=== PATIENT | female | born 1960 | race Caucasian/White ===

== ENCOUNTER 2024-01-22 12:30 | Emergency (ER) | payer MEDICARE, SELFPAY ==
[2024-01-22 12:35] VITALS: BP 185/102; PULSE 79; RESP 18; TEMP 37.1; O2SAT 96; BMI 27.4
[2024-01-22 13:40] LABS: Amorphous Sediment Urine 1+; Bacteria Urine None Seen; Culture Indicated Urine Specimen Cultured; RBC Urine 0-1/HPF (0-5/HPF); Squamous Epithelial Cell Urine None Seen (0-5/HPF); Urine Volume 10mL (spun); WBC Urine 1-5/HPF (0-5/HPF)
[2024-01-22 13:49] LABS: Add Manual Diff / Slide Review NO; Basophils Absolute Auto 0 /uL (0-100); Basophils Percent Auto 0.6 % (0-2); Eosinophils Absolute Auto 200 /uL (0-450); Eosinophils Percent Auto 5.2 % (2-4); Hematocrit 41.5 % (36-46); Hemoglobin 14.3 g/dL (12.0-16.0); Lymphocytes Absolute Auto 1200 /uL (1100-4500); Lymphocytes Percent Auto 25.5 % (25-40); Mean Corpuscular HGB Conc 34.5 % (30-36); Mean Corpuscular Hemoglobin 32.9 PG (26-34); Mean Corpuscular Volume 95.5 fL (80-100); Monocytes Absolute Auto 400 /uL (0-900); Neutrophils Absolute Auto 2800 /uL (1500-7000); Neutrophils Percent Auto 60.7 % (50-75); Platelet Count 230 X10^3/uL (150-400); Red Blood Cell Count 4.34 X10^6/uL (4.0-5.2); Red Cell Distribution Width 12.4 % (11.6-14.8); White Blood Cell Count 4.6 X10^3/uL (4.5-11.0)
[2024-01-22 14:04] LABS: Alanine Aminotransferase 279 IU/L (<35); Albumin 4.8 g/dL (3.5-5.0); Albumin Globulin Ratio 1.5 (1.0-2.8); Alkaline Phosphatase 208 U/L (38-126); Aspartate Aminotransferase 86 IU/L (14-36); BUN Creatinine Ratio 15.8 (6-22); Bilirubin Total 1.4 mg/dL (0.2-1.3); Blood Urea Nitrogen 9 mg/dL (7-17); Calcium 9.4 mg/dL (8.4-10.2); Carbon Dioxide 28 mmol/L (22-32); Chloride 103 mmol/L (98-107); Estimated Glomerular Filt Rate > 60 mL/min (>60); Globulin 3.1 g/dL (1.7-4.1); Glucose 116 mg/dL (80-110); HEMOLYSIS < 15 (0-50); Sodium 138 mmol/L (137-145); Total Protein 7.9 g/dL (6.3-8.2)
--- NOTE | 2024-01-22 15:03 | ED_ITS ---
HPI - Abdominal Pain General Chief Complaint: Urogenital-Female Stated Complaint: Itching, discolored urine, nausea, SoB Time Seen by Provider: 01/22/24 12:55 Source: patient Mode of arrival: Ambulatory History of Present Illness HPI narrative: Patient is a 63-year-old female without significant past medical history presenting today with itching and dark urine. She reports that she was recently treated for a silent rhinitis and put on antibiotics for 7 days. She finished the antibiotics about 3 weeks ago she has been doing well however the last 3 days she is noted some dark copper like urine. She has no abdominal pain nausea or vomiting. She reports some inside itching. She denies any painful frequent urination no back pain. She has a history of diverticulitis but she says this is nothing like that. She denies any epigastric pain no chest pain no right shoulder pain. She denies any sort of rash or erythema no tongue swelling lip swelling stridor difficulty breathing. Related Data Allergies Allergy/AdvReac Type Severity Reaction Status Date / Time No Known Drug Allergies Allergy Verified 01/22/24 12:40 Patient History Social History Smoking Status: Never smoker Smoking Status: Never smoker alcohol intake frequency: 0-2 drinks per day Substance Use Type: does not use Exam Initial Vital Signs Initial Vital Signs: Vital Signs Temperature 98.8 F 01/22/24 12:35 Pulse Rate 79 01/22/24 12:35 Respiratory Rate 18 01/22/24 12:35 Blood Pressure 185/102 H 01/22/24 12:35 Pulse Oximetry 96 01/22/24 12:35 Oxygen Delivery Method Room Air 01/22/24 12:35 GENERAL: Alert very pleasant 63-year-old female and in [no acute] distress. HEENT: Head atraumatic,EOMI, pupils reactive, face symmetric, [moist] mucous membranes CARDIOVASCULAR: Regular rate and rhythm without murmurs, rubs or gallops. RESPIRATORY: Breath sounds equal bilaterally, no wheezes rales or rhonchi. ABDOMEN: Soft, nontender. Normoactive bowel sounds all 4 quadrants. No guarding or rebound. Negative Blankenship's sign : No CVA tenderness EXTREMITIES: Normal range of motion, no clubbing or edema. Neurovascularly intact NEUROLOGICAL: Alert and oriented x4. SKIN: Warm, dry, no laceration, no petechiae, no rashes or lesions. Course Orders Ordered: ED Orders 01/22/24 13:05 Urine Culture Stat Urine Microscopic Stat 01/22/24 13:40 CBC Auto Diff [Complete Blood Count AUTO DIFF] Stat CMP [Comprehensive Metabolic Panel] Stat 01/22/24 13:42 Lipase Stat 01/22/24 15:04 US abdomen limited Stat Discontinued Medications Ondansetron HCl (Ondansetron 4 Mg/2 Ml Inj) 4 mg IV NOW PRN PRN Reason: Nausea And Vomiting Vital Signs Vital signs: Vital Signs - 8 hr 01/22/24 12:35 01/22/24 16:04 01/22/24 16:05 Temperature 98.8 F Pulse Rate 79 69 Respiratory Rate 18 Blood Pressure 185/102 H 152/80 H Pulse Oximetry 96 95 Oxygen Delivery Method Room Air 01/22/24 16:05 01/22/24 16:06 Temperature Pulse Rate 69 72 Respiratory Rate 16 16 Blood Pressure 152/80 H Pulse Oximetry 97 98 Oxygen Delivery Method Room Air Room Air MDM - Abdominal Pain Lab Data 01/22/24 13:40 01/22/24 13:40 Labs: Lab Results 01/22/24 01/22/24 01/22/24 Range/Units 13:05 13:40 13:42 WBC 4.6 (4.5-11.0) X10^3/uL RBC 4.34 (4.0-5.2) X10^6/uL Hgb 14.3 (12.0-16.0) g/dL Hct 41.5 (36-46) % MCV 95.5 (80-100) fL MCH 32.9 (26-34) PG MCHC 34.5 (30-36) % RDW 12.4 (11.6-14.8) % Plt Count 230 (150-400) X10^3/uL Neut % (Auto) 60.7 (50-75) % Lymph % (Auto) 25.5 (25-40) % [place] % (Auto) 8.0 (3-14) % Eos % (Auto) 5.2 H (2-4) % Baso % (Auto) 0.6 (0-2) % Neut # (Auto) 2800 (2853-4484) /uL Lymph # (Auto) 1200 (0310-4163) /uL [place] # (Auto) 400 (0-900) /uL Eos # (Auto) 200 (0-450) /uL Baso # (Auto) 0 (0-100) /uL Sodium 138 (137-145) mmol/L Potassium 4.0 (3.4-5.1) mmol/L Chloride 103 (98-107) mmol/L Carbon Dioxide 28 (22-32) mmol/L BUN 9 (7-17) mg/dL Creatinine 0.57 (0.52-1.04) mg/dL Estimated GFR > 60 (>60) mL/min BUN/Creatinine Ratio 15.8 (6-22) Glucose 116 H (80-110) mg/dL Calcium 9.4 (8.4-10.2) mg/dL Total Bilirubin 1.4 H (0.2-1.3) mg/dL AST 86 H (14-36) IU/L ALT 279 H (<35) IU/L Alkaline Phosphatase 208 H (38-126) U/L Total Protein 7.9 (6.3-8.2) g/dL Albumin 4.8 (3.5-5.0) g/dL Globulin 3.1 (1.7-4.1) g/dL Albumin/Globulin Ratio 1.5 (1.0-2.8) Lipase 139 (23-300) U/L Urine RBC 0-1/hpf (0-5/HPF) Urine WBC 1-5/hpf (0-5/HPF) Ur Squamous Epith Cells None seen (0-5/HPF) Amorphous Sediment 1+ Urine Bacteria None seen (None) Ur Culture Indicated? Specimen cultured Vol Urine Centrifuged 10ml (spun) Point of care testing: Urine Dip Bedside Urine Glucose Negative Bedside Urine Bilirubin - Negative Bedside Urine Ketone - Negative Urine Specific [place] 1.010 Bedside Urine Occult Blood - Negative Bedside Urine pH 6.0 Bedside Urine Protein - Negative Bedside Urine Urobilinogen - Negative Bedside Urine Nitrite - Negative Bedside Urine Leukocytes + 70 Esterase Imaging Data US - abdomen: Radiologist's Impression: PROCEDURE: US ABDOMEN LIMITED INDICATIONS: ruq TECHNIQUE: Real-time scanning was performed of the abdominal and retroperitoneal organs, with image documentation. COMPARISON: None. FINDINGS: Liver: Liver is normal in size and homogeneous in echotexture. Gallbladder: Numerous tiny nonobstructing stones No wall thickening. No pericholecystic edema. Negative sonographic Blankenship's sign. Biliary ducts: Intrahepatic bile ducts are non-dilated. Extrahepatic bile duct caliber measures 4.8 mm. Normal is 6-7 mm or less in diameter, or 10 mm or less post-cholecystectomy. Pancreas: Visualized portions of the pancreas are sonographically normal. Miscellaneous: No free abdominal fluid. IMPRESSION: Cholelithiasis without evidence of acute cholecystitis. Dictated by: Donald Curry M.D. on 01/22/2024 at 14:58 MDM Narrative Medical decision making narrative: Patient is 63-year-old female who presents today with dark urine and body itching. Patient has no sort of abdominal pain and over all appears comfortable I see no evidence of rash. Blood work has been reviewed she does have significant findings bilirubin of 1.4 AST 86 ALT 279 with alk-phos of 208 lipase Urinalysis does show leukocytes no nitrates specimen is cultured negative for bilirubin Ultrasound confirms multiple nonobstructing stones with out pericholecystic fluid Patient presents today with itchiness but is afebrile no sign of infection no leukocytosis. She does have slightly elevated bilirubin and liver enzymes but she again is reexamined and has no right upper quadrant pain abdominal pain or epigastric pain. 1650 Dr. Mcgowan updated on patient's symptoms test results she recommends patient have repeat blood work with the primary care provider. Will ultimately need a cholecystectomy but nonemergent today and she has no pain. Discussion with patient about test results probable need for cholecystectomy and follow-up. I discussed with her about getting repeat blood work next week she also understands about this. She really has absolutely no abdominal pain. It is possible that she has a small choledocholithiasis but common bile duct is not dilated and she does not have any evidence of pancreatitis. It is unclear what her normal liver enzymes are. I also discussed with her that she may require further evaluation such as a CT symptoms worsen. Discharge Plan Departure Patient Disposition: Home Clinical Impression: Cholelithiasis, Elevated liver enzymes Instructions: Gallstones Activity Restrictions/Additional Instructions: *You have been diagnosed with cholelithiasis elevated liver enzymes *What to do: At this time I do think he will need your gallbladder removed however urgent today. Although please follow-up and have repeat blood work including your liver enzymes with your primary care provider next week. Please follow-up gallbladder diet. *Continue to take medications as directed Motrin 600 mg every 6 hours if needed for [id number] pain I would avoid Tylenol due to elevated liver enzymes *Follow up with your primary care provider in 2-3 days or call [phone] *Return to ER if you should have fever, abdominal pain persistent vomiting or any new, worsening or concerning symptoms Referrals: [facility] [Provider Group] Stand Alone Forms: Patient Portal/API
[2024-01-22 15:13] LABS: Lipase 139 U/L (23-300)
[2024-01-22 16:04] VITALS: PULSE 69; O2SAT 95
[2024-01-22 16:05] VITALS: BP 152/80; PULSE 69; RESP 16; O2SAT 97
[2024-01-22 16:06] VITALS: BP 152/80; PULSE 72; RESP 16; O2SAT 98
== END 2024-01-22 17:21 | disposition home or self-care (01) ==
PROVIDERS: Emergency Provider Emergency Medicine
DX: K80.20 Calculus of gallbladder without cholecystitis without obstruction (principal); R74.01 Elevation of levels of liver transaminase levels
CPT/HCPCS: 36415; 76705; 80053; 81003; 81015; 83690; 85025; 87086; 99283